=== PATIENT | female | born 1975 | race Hispanic/Latino ===

== ENCOUNTER 2020-09-25 12:33 | Emergency (ER) | payer BC, OTHER ==
[~2020-09-25] VITALS: Ht 152.4 cm; Wt 106.6 kg
[~2020-09-25 12:33] MED LIST: LEVOTHYROXINE200 MCG PO; ULTRAM50 MG PO; VITAMIN D350000 UNIT PO
[2020-09-25] MEDS ORDERED: FAMOTIDINE20 MG PO (13:14)
[2020-09-25] MEDS ORDERED: CRESTOR10 MG PO (13:14)
[2020-09-25] MEDS ORDERED: FAMOTIDINE 20 MG/2 ML VIAL IV ONE ×2 (13:30→13:46)
[2020-09-25] MEDS ORDERED: ONDANSETRON HCL INJ 2MG/ML 2ML 2 MG/ML VIAL IV ONE (13:30)
[2020-09-25] MEDS ORDERED: KETOROLAC TROMETHAMINE 30 MG/ML VIAL IV ONE (13:30)
[2020-09-25] MEDS ORDERED: KETOROLAC TROMETHAMINE 30 MG/ML VIAL ONE (13:45)
[2020-09-25] MEDS ORDERED: SODIUM CHLORIDE 0.9% 1000ML 1,000 ML ONE (13:46)
[2020-09-25] MEDS ORDERED: ONDANSETRON HCL INJ 2MG/ML 2ML 2 MG/ML VIAL ONE (13:46)
[2020-09-25] MEDS ORDERED: ZOFRAN4 MG PO (14:18)
[2020-09-25] MEDS ORDERED: ULTRAM 50MG50 MG PO (14:18)
[2020-09-25] MEDS ORDERED: CEFDINIR300 MG PO (14:18)
[2020-09-25 19:46] VITALS: BP 155/75
== END 2020-09-25 14:53 | disposition home or self-care (01) ==
LOC: FSED 12:37
DX: M54.5 Low back pain (principal); R31.9 Hematuria, unspecified; N39.0 Urinary tract infection, site not specified; K76.0 Fatty (change of) liver, not elsewhere classified; R16.0 Hepatomegaly, not elsewhere classified; E78.5 Hyperlipidemia, unspecified; E03.9 Hypothyroidism, unspecified
CPT/HCPCS: 74176; 80053; 81003; 81025; 85025; 96374; 96375; 99284; J1885; J2405; J7030

== ENCOUNTER → 2020-11-04 | Day surgery (SDC) | payer BC, OTHER ==
[~2020-11-04] MED LIST changes: +CEFDINIR300 MG PO; +CRESTOR10 MG PO; +FAMOTIDINE20 MG PO; +FD GUARD PO; +OMEPRAZOLE40 MG PO; +ULTRAM 50MG50 MG PO; +ZOFRAN4 MG PO; +[UNRECOGNIZED DRUG - OTHER] PO
[2020-11-04 09:20] VITALS: BP 109/84
== END | disposition home or self-care (01) ==
LOC: OR 06:34
PROVIDERS: ATTEND Internal Medicine Gastroenterology
DX: K29.50 Unspecified chronic gastritis without bleeding (principal); K21.00 Gastro-esophageal reflux disease with esophagitis, without bleeding; K44.9 Diaphragmatic hernia without obstruction or gangrene; Z71.3 Dietary counseling and surveillance; E66.01 Morbid (severe) obesity due to excess calories; E78.5 Hyperlipidemia, unspecified; E03.9 Hypothyroidism, unspecified; Z01.812 Encounter for preprocedural laboratory examination; Z20.822 Contact with and (suspected) exposure to COVID-19; Z68.41 Body mass index [BMI] 40.0-44.9, adult
CPT/HCPCS: 43239; 81025; U0002

== ENCOUNTER 2021-04-08 10:02 | Emergency (ER) | payer BC ==
[~2021-04-08] VITALS: Ht 152.4 cm; Wt 105.5 kg
[2021-04-08] MEDS ORDERED: ACETAMINOPHEN 325 MG TAB PO ONE ×2 (11:00→15:30)
[2021-04-08] MEDS ORDERED: SPIRONOLACTONE25 MG PO (11:14)
[2021-04-08] MEDS ORDERED: FAMOTIDINE 20 MG/2 ML VIAL IV ONE (11:18)
[2021-04-08] MEDS ORDERED: ONDANSETRON HCL INJ 2MG/ML 2ML 2 MG/ML VIAL ONE (11:18)
[2021-04-08] MEDS ORDERED: KETOROLAC TROMETHAMINE 30 MG/ML VIAL ONE (11:18)
[2021-04-08] MEDS ORDERED: SODIUM CHLORIDE 0.9% 1000ML 1,000 ML ONE ×2 (11:18→13:13)
[2021-04-08] MEDS ORDERED: IOPAMIDOL 370 MG/ML 200 ML INFUS..BTL INJ ONE (11:37)
[2021-04-08] MEDS ORDERED: SODIUM CHLORIDE 0.9% 50ML 0 ML ONE (11:37)
[2021-04-08] MEDS ORDERED: CEFTRIAXONE 1 GM in SODIUM CHLORIDE 0.9% 50ML 50 ML IV ONE (13:15)
[2021-04-08] MEDS ORDERED: METRONIDAZOLE 500MG/NS 100ML 100 ML IV ONE ×2 (13:15→14:37)
[2021-04-08] MEDS ORDERED: ONDANSETRON HCL INJ 2MG/ML 2ML 2 MG/ML VIAL IV STA (14:07)
[2021-04-08] MEDS ORDERED: FAMOTIDINE 20 MG/2 ML VIAL IV STA (14:07)
[2021-04-08] MEDS ORDERED: KETOROLAC TROMETHAMINE 30 MG/ML VIAL IV STA (14:07)
[2021-04-08] MEDS ORDERED: SODIUM CHLORIDE 0.9% 1000ML 1,000 ML IV ONE ×2 (14:15)
[2021-04-08] MEDS ORDERED: CLINDAMYCIN PHOS 300MG/2ML VIAL ONE (14:36)
[2021-04-08] MEDS ORDERED: SODIUM CHLORIDE 0.9% 50ML 100 ML ONE (14:37)
[2021-04-08] MEDS ORDERED: CEFTRIAXONE 1 GM VIAL ONE (14:37)
[2021-04-08] MEDS ORDERED: Clindamycin INJ 900 MG 900 MG in SODIUM CHLORIDE 0.9% 50ML 50 ML IV ONE (15:00)
[2021-04-08] MEDS ORDERED: ACETAMINOPHEN 325 MG TAB ONE (15:18)
== END 2021-04-08 18:51 | disposition other institution (70) ==
LOC: FSED 11:03
DX: R50.9 Fever, unspecified (principal); N70.11 Chronic salpingitis; R10.2 Pelvic and perineal pain; D72.829 Elevated white blood cell count, unspecified; R73.9 Hyperglycemia, unspecified; E03.9 Hypothyroidism, unspecified; K76.0 Fatty (change of) liver, not elsewhere classified; Z20.822 Contact with and (suspected) exposure to COVID-19
CPT/HCPCS: 74177; 76705; 76830; 80048; 80076; 81003; 81025; 83605; 85025; 87040; 96374; 96375; 99284; J0696; J1885; J2405; J7030; Q9967; U0002; 87070; 87205